=== PATIENT | male | born 1990 | race Asian ===

== ENCOUNTER 2016-09-17 13:57 | Emergency (ER) | payer OTHER ==
[~2016-09-17] VITALS: Ht 177.8 cm; Wt 65.6 kg
[2016-09-17 14:03] VITALS: TEMP 37.1; Ht 177.8 cm; Wt 65.6 kg
[2016-09-17 14:39] LABS: BASO % 0.5 %; BASO ABS # 0.03 K/uL (0-0.2); COMPLETE YES; EOS % 0.4 %; HEMATOCRIT 48.2 % (42-52); IG% 0.4 %; LYMPH % 24.1 %; LYMPH ABS # 1.35 K/uL (1.2-3.4); MEAN CELL VOLUME 88.1 fL (80-100); MEAN CORPUSCULAR HEMOGLOBIN 31.1 pg (25-34); MEAN CORPUSCULAR HGB CONC 35.3 g/dl (32-36); MEAN PLATELET VOLUME 9.5 fL (7.4-10.4); MONO % 6.4 %; NEUT % 68.2 %; PLATELET COUNT 218 K/uL (130-400); RED BLOOD COUNT 5.47 M/uL (4.7-6.1); WHITE BLOOD COUNT 5.61 K/uL (4.8-10.8)
[2016-09-17 15:04] LABS: BUN/CREATININE RATIO 10.5 (10-20); CALCIUM 9.5 mg/dl (8.5-10.1); CREATININE 0.86 mg/dl (0.60-1.40); POTASSIUM 3.6 mmol/L (3.5-5.1)
[2016-09-17 15:37] VITALS: BP 136/77; PULSE 86; O2SAT 98
--- NOTE | 2016-09-17 15:55 | EMERGENCY ROOM VISIT NOTE ---
History Report prepared by Adan: Dede Duron Under the Supervision of: Dr. Skye Chandler D.O. First contact with patient: 14:05 Chief Complaint: ANXIETY Stated Complaint: DIZZY History of Present Illness The patient is a 25 year old male who presents to the Emergency Room with complaints of worsening anxiety starting five days ago. The patient states that he was moving furniture around five days ago and did a lot of work. He states that his neck feels "overly straight" and that his left eye feels "uncomfortable." He reports that when he would turn his head to the left, he would become dizzy. He states that this has since increased to any time he stands or moves. He states that it is worse with movement and better when lying down. He describes it as if he is "off balance." The patient states that he has anxiety about the dizziness he has. He reports that the more he thinks about his health getting worse, the more he becomes anxious. The patient states that he then starts to feel a pressure in his head, but denies it as a headache. The patient also complains of diarrhea starting 3 days ago. The patient notes that he does believe he is drinking enough water that is 4-5 glasses a day. The patient notes a history of anxiety. The patient denies chest pain, shortness of breath, abdominal pain, vomiting, recent travel, cough, fevers, and chills. Source of History: patient Onset: five days ago Position: other (global) Quality: other (global) Timing: worsening Modifying Factors (Worsening): movement Modifying Factors (Relieving): other (lying down) Associated Symptoms: + neck pain ("staright"), + diarrhea, No fevers, No chills, No headache, No cough, No chest pain, No SOB, No vomiting, No abdominal pain Note: The patient complains of dizziness, left eye "uncomfortable," and pressure in his head. Review of Systems Pt denies headache, change in vision, fevers, chest pain, shortness of breath, nausea, vomiting, diarrhea, pain with urination, and melena. Past Medical & Surgical Medical Problems: (1) History of anxiety Family History No pertinent family history Social History Smoking Status: Never Smoker Marital Status: in relationship Housing Status: lives with significant other Occupation Status: [employer] student Current/Historical Medications No Active Prescriptions or Reported Meds Allergies Coded Allergies: No Known Allergies (Unverified , 09/17/16) Physical Exam Vital Signs Date Time Temp Pulse Resp B/P (MAP) Pulse Ox O2 Delivery O2 Flow Rate FiO2 09/17/16 15:37 86 18 136/77 98 Room Air 09/17/16 15:26 79 18 136/77 98 Room Air 101 139/79 90 146/79 09/17/16 14:03 37.1 122 20 161/89 98 Room Air Physical Exam GENERAL: alert, well appearing, well nourished, no distress, non-toxic EYE EXAM: normal conjunctiva, PERRL and EOM's grossly intact OROPHARYNX: no exudate, no erythema, lips, buccal mucosa, and tongue normal and mucous membranes are moist NECK: supple, no nuchal rigidity, no adenopathy, non-tender LUNGS: Clear to auscultation. Normal chest wall mechanics HEART: no murmurs, S1 normal and S2 normal ABDOMEN: abdomen soft, non-tender, normo-active bowel sounds, no masses, no rebound or guarding. BACK: Back is symmetrical on inspection and there is no deformity, no midline tenderness, no CVA tenderness. SKIN: no rashes and no bruising UPPER EXTREMITIES: upper extremities are grossly normal. LOWER EXTREMITIES: No pitting edema. NEURO EXAM: Normal sensorium, cranial nerves II-XII intact, normal speech, no weakness of arms, no weakness of legs. Medical Decision & Procedures Laboratory Results 09/17/16 14:28 Red Blood Count 5.47, Mean Corpuscular Volume 88.1, Mean Corpuscular Hemoglobin 31.1, Mean Corpuscular Hemoglobin Concent 35.3, Mean Platelet Volume 9.5, Neutrophils (%) (Auto) 68.2, Lymphocytes (%) (Auto) 24.1, Monocytes (%) (Auto) 6.4, Eosinophils (%) (Auto) 0.4, Basophils (%) (Auto) 0.5, Neutrophils # (Auto) 3.83, Lymphocytes # (Auto) 1.35, Monocytes # (Auto) 0.36, Eosinophils # (Auto) 0.02, Basophils # (Auto) 0.03 09/17/16 14:28 Test 09/17/16 14:28 White Blood Count 5.61 K/uL (4.8-10.8) Red Blood Count 5.47 M/uL (4.7-6.1) Hemoglobin 17.0 g/dL (14.0-18.0) Hematocrit 48.2 % (42-52) Mean Corpuscular Volume 88.1 fL (80-100) Mean Corpuscular Hemoglobin 31.1 pg (25-34) Mean Corpuscular Hemoglobin Concent 35.3 g/dl (32-36) Platelet Count 218 K/uL (130-400) Mean Platelet Volume 9.5 fL (7.4-10.4) Neutrophils (%) (Auto) 68.2 % Lymphocytes (%) (Auto) 24.1 % Monocytes (%) (Auto) 6.4 % Eosinophils (%) (Auto) 0.4 % Basophils (%) (Auto) 0.5 % Neutrophils # (Auto) 3.83 K/uL (1.4-6.5) Lymphocytes # (Auto) 1.35 K/uL (1.2-3.4) Monocytes # (Auto) 0.36 K/uL (0.11-0.59) Eosinophils # (Auto) 0.02 K/uL (0-0.5) Basophils # (Auto) 0.03 K/uL (0-0.2) RDW Standard Deviation 37.5 fL (36.4-46.3) RDW Coefficient of Variation 11.8 % (11.5-14.5) Immature Granulocyte % (Auto) 0.4 % Immature Granulocyte # (Auto) 0.02 K/uL (0.00-0.02) Anion Gap 5.0 mmol/L (3-11) Est Creatinine Clear Calc Drug Dose 124.0 ml/min Estimated GFR () 141.7 Estimated GFR (Non- 122.2 BUN/Creatinine Ratio 10.5 (10-20) Calcium Level 9.5 mg/dl (8.5-10.1) Laboratory results per my review. ECG Indication: other (dizziness) Rate (beats per minute): 87 Rhythm: sinus rhythm Findings: no acute ischemic change, no ectopy, other (normal axis, normal interval, no evidence of Brugada, no evidence of WPW) ED Course 1407: The patient was evaluated in room B10. A complete history and physical exam was performed. 1524: I reevaluated the patient and he was still symptomatic upon standing. I updated him on his test results. 1624: Upon reevaluation, the patient is feeling better. I discussed the findings and the treatment plan with the patient. He verbalizes agreement and understanding. The patient was discharged home. Medical Decision Differential diagnosis: Etiologies such as benign positional vertigo, dehydration, hypovolemia, anemia, tumor, infection, hypoglycemia, electrolyte abnormalities, cardiac sources, intracerebral event, toxicologic, neurologic, as well as others were entertained. Patient well-appearing here despite complaints. Clearly anxious on exam and history of anxiety. Patient notes recent increased stress due to school as well as moving. Patient also with recent mild diarrhea, no history of travel, change in meds or diet, or known sick contact. Patient feels possibly related to stress also. No history of IBS or IBD. Patient's labs reassuring, symptoms of dizziness/lightheadedness seem orthostatic in nature. Patient tolerating by mouth here. Doubt cardiac etiology, no risk factors, EKG reassuring. No recent trauma, doubt vascular etiology, doubt bacteremia/sepsis. Patient's exam otherwise unremarkable, normal nonfocal neuro exam at bedside. And symptoms resolved with sitting down. Patient ambulatory with a steady gait and no recurrence of symptoms area discussed with patient follow-up with family doctor, adequate hydration, symptoms to watch and return for, he verbalized understanding was agreeable with plan. Medication Reconcilliation Current Medication List: was personally reviewed by me Blood Pressure Screening Patient's blood pressure: Elevated blood pressure Blood pressure disposition: Elevated BP felt to be situational Impression Primary Impression: Lightheadedness Additional Impression: Acute anxiety Scribe Attestation The scribe's documentation has been prepared under my direction and personally reviewed by me in its entirety. I confirm that the note above accurately reflects all work, treatment, procedures, and medical decision making performed by me. Departure Information Dispostion Home / Self-Care Prescriptions No Active Prescriptions or Reported Meds Referrals No Doctor, Assigned (PCP) Forms HOME CARE DOCUMENTATION FORM, IMPORTANT VISIT INFORMATION Patient Instructions My [facility] Additional Instructions Please follow up with your regular doctor. Please try to find other outlets for dealing with your stress and anxiety. You may use the medication as previously prescribed. Please make sure you're drinking plenty of water. Please continue to monitor your bowel movements for any further changes. If you have any worsening diarrhea, develop abdominal pain, vomiting, fevers or chills, chest pain, trouble breathing, feels though you're going to black out, you have any other new concerns, please return the emergency room. Problem Qualifiers
== END 2016-09-17 16:28 | disposition home or self-care (01) ==
LOC: C.EDB 13:59
DX: R42 Dizziness and giddiness (principal); F41.9 Anxiety disorder, unspecified